=== PATIENT | male | born 1970 | race Hispanic/Latino ===

== ENCOUNTER 2023-10-22 10:29 | Emergency (ER) | payer BC, SELFPAY ==
--- NOTE | 2023-10-22 10:34 | ED.NAVMDI ---
HPI - Nausea/Vomiting/Diarrhea General Chief complaint: Nausea/Vomiting/Diarrhea Stated complaint: Vomiting/Diarrhea Time Seen by Provider: 10/22/23 10:30 Source: patient Mode of arrival: ambulatory Limitations: no limitations History of Present Illness HPI Narrative: Semaj is a 53-year-old male patient presenting to the clinic today with complaints of nausea, vomiting, diarrhea, mild abdominal discomfort, and left-sided back discomfort. He reports symptoms started last night. Denies any fever or chills. States he has thrown up a lot and had a lot of diarrhea since last night. Is unable to tell me how many times he has vomited or had diarrhea. He denies any urinary symptoms. He is passing gas. Denies any blood in the stool. Review of Systems Review of Systems: Pertinent positives per HPI. Patient denies any fever, chills, rash, headache, visual changes, dizziness, cough, runny nose, sore throat, shortness of breath, chest pain, palpitations, constipation, or any urinary issues. PMFSH Comments At the time of my signature, I reviewed and agree with the nursing past medical, surgical, social, and family history. There is no relevant family history pertinent to the patient complaint. Exam Narrative: General: Well-developed, well nourished, in no apparent distress. Head: Normocephalic, atraumatic. Cardio: Regular rate and rhythm, s1 and s2 normal, no murmur appreciated. Resp: Clear to auscultation bilaterally, no rhonchi, rales, wheezing or rubs. Abdomen: Soft, pliable, bowel sounds present in all quadrants, mild generalized tender to palpation, no organomegly, no CVAT tenderness. Course Course Emergency Course: Portions of this record may have been created with voice recognition software. Level of Care: Express Care Visit Vital Signs Vital signs: Vital signs reviewed MDM - Nausea/Vomiting/Diarrhea MDM Narrative Medical decision making narrative: At the time of visit patient is resting comfortably on the exam table. Patient appears to be nontoxic. Labs: Influenza, COVID, and urinalysis was performed. Influenza and COVID testing was negative. UA is positive for 2+ bili, 2+ ketones, and high specific gravity with 1+ protein. Plan: I suspect patient is dehydrated with gastroenteritis. Will send in prescription for Zofran and Levsin and have the patient push fluids at home. Supportive measures were discussed with the patient and they voiced understanding discharge instructions and agrees to treatment plan. Return precautions reviewed Differential Diagnosis Differential diagnosis: Likely traveler's diarrhea, food poisoning, gastroenteritis, drug-induced nausea and vomiting, dehydration and other (Diverticulosis, diverticulitis, enteritis) Discharge Plan Discharge Clinical Impression: Gastroenteritis Patient Disposition: Home, Self-Care Condition: Stable Instructions: Antibiotic Form, Gastroenteritis (ED) Additional Instructions: La UA muestra 2+ cetonas, 2+ bilis y 1+ prote?yasir con yonathan gravedad espec?fica gregory, probablemente debido a la deshidrataci?n. Las pruebas de COVID e influenza dieron negativas Brundage los medicamentos recetados s?lo seg?n lo prescrito: Levsin y ondansetr?n Aumente los l?quidos y mant?ngase mariama hidratado. Tylenol/motrin para el dolor/fiebre Dieta BRAT para la diarrea L?quidos melanie x 24 horas y luego avanzar seg?n la tolerancia para n?useas/v?mitos Vaya al servicio de urgencias si rahman afecci?n empeora: fiebre gregory que no se controla con Tylenol o Motrin, deshidrataci?n, debilidad, letargo, dificultad para respirar, dolor en el pecho o empeoramiento del dolor abdominal. Shavon un seguimiento con rahman PCP en 3 a 5 d?as si los s?ntomas persisten. Patient Language: Vietnamese Prescriptions: New hyoscyamine sulfate [Levsin/SL] 0.125 mg tablet, sublingual 0.125 mg sublingual QID PRN (Reason: dyspepsia) 3 Days Qty: 12 0RF ondansetron 4 mg tablet,disintegrating
[2023-10-22 10:50] VITALS: BP 105/68; PULSE 79; RESP 16; TEMP 37.2; O2SAT 99
== END 2023-10-22 11:32 | disposition home or self-care (01) ==
PROVIDERS: Emergency Provider Nurse Practitioner Family
DX: K52.9 Noninfective gastroenteritis and colitis, unspecified (principal); Z20.822 Contact with and (suspected) exposure to COVID-19
CPT/HCPCS: 81003; 87426; 87804; 99203; G0463